=== PATIENT | female | born 1955 | race Caucasian/White ===

== ENCOUNTER 2018-03-29 16:40 | Emergency (ER) | payer MEDICAID ==
[~2018-03-29] VITALS: Ht 152.4 cm; Wt 64.5 kg
[2018-03-29 17:04] VITALS: Ht 152.4 cm; Wt 64.5 kg
[2018-03-29] MEDS ORDERED: SEROQUEL400 MG PO (17:04)
[2018-03-29] MEDS ORDERED: ABILIFY10 MG PO (17:04)
[2018-03-29] MEDS ORDERED: ZOLOFT50 MG PO (17:04)
[2018-03-29 18:13] LABS: BASOPHILS 0.2 % (0-2); EOSINOPHILS 1.3 % (0-7); HEMATOCRIT 37.7 % (36.0-48.0); HEMOGLOBIN 12.7 g/dL (12-16); IMMATURE GRANULOCYTES 0.2 % (0-5); LYMPHOCYTES 37.6 % (15-50); MCH 31.1 pg (26.0-34.0); MCHC 33.7 g/dL (31.0-37.0); MCV 92.4 fL (80.0-100.0); MEAN PLATELET VOLUME 9.8 fL (7.4-10.4); MONOCYTES 13.6 % (2-11); NEUTROPHILS 47.1 % (40-80); PLATELET COUNT 223 10x3/uL (130-400); RBC 4.08 10x6/uL (4.00-5.40); RDW 14.2 % (11.5-14.5)
[2018-03-29 18:35] LABS: ANION GAP 17.7 mmol/L (8-16); BILIRUBIN - TOTAL 0.23 mg/dL (0.2-1.3); CALCIUM 8.6 mg/dL (8.5-10.1); CARBON DIOXIDE 20.6 mmol/L (21.0-32.0); CREATININE - SERUM 1.1 mg/dL (0.6-1.3); POTASSIUM - SERUM 3.3 mmol/L (3.5-5.1); PROTEIN - SERUM 7.4 g/dL (6.4-8.2)
[2018-03-29 19:43] VITALS: BP 112/73
== END 2018-03-29 19:43 | disposition home or self-care (01) ==
LOC: D.ER 16:40
PROVIDERS: Family Medicine
DX: J06.9 Acute upper respiratory infection, unspecified (principal); E87.6 Hypokalemia; M79.18 Myalgia, other site; R51 Headache; R05 Cough

== ENCOUNTER 2019-12-09 12:36 | Emergency (ER) | payer MEDICAID ==
[~2019-12-09] VITALS: Ht 152.4 cm; Wt 63.6 kg
[~2019-12-09 12:36] MED LIST: ABILIFY10 MG PO; SEROQUEL400 MG PO; ZOLOFT50 MG PO
[2019-12-09 12:39] VITALS: Ht 152.4 cm; Wt 63.6 kg
[2019-12-09 13:41] LABS: BASOPHILS 0.2 % (0-2); EOSINOPHILS 2.7 % (0-7); HEMATOCRIT 42.1 % (36.0-48.0); HEMOGLOBIN 13.9 g/dL (12-16); IMMATURE GRANULOCYTES 0.2 % (0-5); LYMPHOCYTES 43.2 % (15-50); MCH 30.3 pg (26.0-34.0); MCV 91.9 fL (80.0-100.0); MEAN PLATELET VOLUME 9.8 fL (7.4-10.4); MONOCYTES 7.4 % (2-11); NEUTROPHILS 46.3 % (40-80); PLATELET COUNT 225 10x3/uL (130-400); RBC 4.58 10x6/uL (4.00-5.40); RDW 13.9 % (11.5-14.5); WBC 6.2 10x3/uL (4.8-10.8)
[2019-12-09 13:49] LABS: APTT 25.2 SECONDS (22.8-39.4); INR 0.93 (0.85-1.17); PROTIME 12.5 SECONDS (11.6-15.0)
[2019-12-09 13:50] LABS: ANION GAP 12.8 mmol/L (8-16); CALCIUM 9.1 mg/dL (8.5-10.1); CARBON DIOXIDE 25.4 mmol/L (21.0-32.0); CREATININE - SERUM 1.4 mg/dL (0.6-1.3); POTASSIUM - SERUM 4.2 mmol/L (3.5-5.1)
[2019-12-09 13:57] LABS: ALBUMIN 3.4 g/dL (3.4-5.0); BILIRUBIN - TOTAL 0.27 mg/dL (0.2-1.3)
[2019-12-09] MEDS ORDERED: ULTRAM50 MG PO (14:15)
[2019-12-09] MEDS ORDERED: KEFLEX500 MG PO (14:21)
[2019-12-09 14:59] VITALS: BP 114/62
== END 2019-12-09 14:59 | disposition home or self-care (01) ==
LOC: D.ER 12:36
PROVIDERS: Family Medicine
DX: S00.83XA Contusion of other part of head, initial encounter (principal); M79.18 Myalgia, other site; T14.8XXA Other injury of unspecified body region, initial encounter; S02.2XXA Fracture of nasal bones, initial encounter for closed fracture; W01.10XA Fall on same level from slipping, tripping and stumbling with subsequent striking against unspecified object, initial encounter; Y93.9 Activity, unspecified; Y92.9 Unspecified place or not applicable